=== PATIENT | female | born 1960 | race Caucasian/White ===

== ENCOUNTER 2018-01-23 07:51 | Emergency (ER) | payer SELFPAY ==
[~2018-01-23] VITALS: Ht 162.6 cm; Wt 78.5 kg
[2018-01-23 08:01] VITALS: Ht 162.6 cm; Wt 78.5 kg
[2018-01-23 10:23] LABS: UA SPECIFIC GRAVITY >=1.030 (1.005-1.035); microscopic required? YES; urine erythrocyte NEGATIVE (NEGATIVE)
[2018-01-23 10:33] LABS: BASOPHIL % 0.1 % (0-2); PLATELET COUNT 209 x10^3mcL (130-400)
[2018-01-23 10:37] LABS: CALCIUM 8.7 mg/dL (8.5-10.1); CARBON DIOXIDE 28.5 mmol/L (21-32); CHLORIDE SERUM 108 mmol/L (98-107); GFR1 > 60 mL/min; GLUCOSE SERUM 140 mg/dL (74-106); POTASSIUM SERUM 3.9 mmol/L (3.5-5.1); SODIUM SERUM 144 mmol/L (136-145)
[2018-01-23 10:41] LABS: ALBUMIN 3.6 g/dL (3.4-5.0); ALKALINE PHOSPHATASE 198 U/L (46-116); ALT/SGPT 73 U/L (14-59); AST/SGOT 74 U/L (15-37); BILIRUBIN TOTAL 1.43 mg/dL (0.20-1.00); LIPASE 84 IU/L (73-393)
[2018-01-23 10:43] LABS: TOTAL PROTEIN, SERUM 8.3 g/dL (6.4-8.2)
[2018-01-23 12:55] VITALS: BP 139/74
== END 2018-01-23 12:55 | disposition home or self-care (01) ==
LOC: ED 07:51
PROVIDERS: Emergency Medicine
DX: K80.20 Calculus of gallbladder without cholecystitis without obstruction (principal); I10 Essential (primary) hypertension
CPT/HCPCS: J1885; Q0092